=== PATIENT | male | born 1945 | race Caucasian/White ===

== ENCOUNTER 2019-08-30 13:03 | Outpatient (CLI) | payer MEDICARE ==
--- NOTE | 2019-08-30 16:15 | MRI ---
MRI Lower Ext Jt Lt WO Con History: Hip pain Comparison: None Findings: Bones: No fracture. No malalignment. No stress edema. There are bilateral femoral head/neck osteophytes. Moderate acetabular osteophyte formation. Moderate degenerative disease of the pubic symphysis. Modic type II endplate changes of the lower lumbar spine with intravertebral herniation of disc mater ial. Labrum: Intrasubstance tear volume loss throughout the entire labrum including the anterior posterior labrum. There is intersubstance tear of the posterior labrum. Cartilage: Mild cartilage fissuring and fraying of the anterior superior acetabulum with adjacent del amination. The central articular surface of the femoral head also is high-grade chondral loss. Tendons: Moderate tendinosis, hamstring and semimembranosus tendons. Iliopsoas tendon intact. Mild g luteus medius tendinosis and interstitial tearing. Low-grade greater trochanteric bursitis. There is susceptibility along the prostatic urethra. T2 hyperintense mass inferior pole right kidney is relatively homogeneous suggestive of a cyst. Quadratus femoris is intact. Rectus femoris is intact. Impression: 1. High-grade degenerative changes lower lumbar spine with Modic type II endplate changes as well as intervertebral herniation of disc. 2. Intrasubstance tear throughout the entire left anterior, superior, and posterior labrum with volum e loss. 3. Mild left gluteus medius tendinosis and interstitial tearing with small greater trochanteric bursi tis. 4. Central articular surface humeral head and lateral acetabular high-grade chondral loss with mild j oint space narrowing. 5. Degenerative changes in the left hip including femoral head osteophyte formation, acetabular osteo phytes, and subcortical reactive marrow changes. 6. Evidence of prior prostatic urethral surgery. Transcribed Date/Time: 08/30/2019 6:53 PM
--- NOTE | 2019-09-03 13:41 | MRI ---
RIGHT HIP MRI WITHOUT IV CONTRAST: Date: 08/30/2019 HISTORY: Right hip pain. FINDINGS: There are some scattered areas of focal irregular cartilage loss of the right hip joint cartilage. Th ere is evidence for a degenerative-type anterior labral tear. Minimal femoral head osteophytosis. No evidence for abnormal marrow signal to suggest avascular necrosis, fracture, or acute stress injury. No evidence for metastasis. No evidence for significant acute muscle or tendon injury. IMPRESSION: 1. Some arthrosis changes with some multifocal areas of irregular cartilage loss involving the right hip joint. 2. Evidence for a degenerative type anterior acetabular labral tear. 3. No evidence for other significant acute abnormality. POS: OFF
== END 2019-08-30 13:04 | disposition home or self-care (01) ==
LOC: TBSIIMAG 13:03
PROVIDERS: ATTEND Neurological Surgery
DX: M25.551 Pain in right hip (principal); M25.552 Pain in left hip; M16.11 Unilateral primary osteoarthritis, right hip; S73.191A Other sprain of right hip, initial encounter; S73.192A Other sprain of left hip, initial encounter; M47.816 Spondylosis without myelopathy or radiculopathy, lumbar region; M51.26 Other intervertebral disc displacement, lumbar region; M70.62 Trochanteric bursitis, left hip; M25.752 Osteophyte, left hip; M67.952 Unspecified disorder of synovium and tendon, left thigh